=== PATIENT | female | born 1995 | race Two or more races ===

== ENCOUNTER 2017-03-12 13:36 | Emergency (ER) | payer MEDICAID ==
[2017-03-12] MEDS ORDERED: IPRATROPIUM/ALBUTEROL 0.5-2.5 MG/3 ML AMPUL NEB ONE (14:41)
--- NOTE | 2017-03-12 14:41 | ER Document Report ---
ED General - General Chief Complaint: Asthma Exacerbation Stated Complaint: DIFFICULTY BREATHING CHEST PAIN Time Seen by Provider: 03/12/17 14:36 Mode of Arrival: Ambulatory Information source: Patient Notes: 21-year-old female history of asthma presents with complaints of asthma exacerbation. Patient notes the tach started at 330 this [place] Patient denies any fevers or chills Patient does note sister has a history of clotting disorder TRAVEL OUTSIDE OF THE [place] IN LAST 30 DAYS: No - Related Data Allergies/Adverse Reactions: No Known Allergies Allergy (Unverified 03/12/17 13:46) Past Medical History - Social History Smoking Status: Current Every Day Smoker Chew tobacco use (# tins/day): No Frequency of alcohol use: Occasional Drug Abuse: None Family History: Other - Past Medical History Cardiac Medical History: Reports: Hx Hypertension Pulmonary Medical History: Reports: Hx Asthma Renal/ Medical History: Denies: Hx Peritoneal Dialysis Psychiatric Medical History: Reports: Hx Bipolar Disorder Past Surgical History: Reports: Hx Section - Immunizations Hx Diphtheria, Pertussis, Tetanus Vaccination: Yes Physical Exam - Vital signs Vitals: Temp Pulse Resp BP Pulse Ox 97.9 F 101 H 26 H 111/74 97 03/12/17 13:48 03/12/17 13:48 03/12/17 13:48 03/12/17 13:48 03/12/17 13:48 Course - Re-evaluation Re-evalutation: 03/12/17 17:07 D-dimer was negative patient notes relief after breathing treatment, patient is stable for discharge Given the patient states this feels exactly like her previous asthma exacerbation I will treat her as such After performing a Medical Screening Examination, I estimate there is LOW risk for ACUTE CORONARY SYNDROME, RESPIRATORY FAILURE, SEPSIS OR MENINGITIS, thus I consider the discharge disposition reasonable. I have reevaluated this patient multiple times and no significant life threatening changes are noted. The patient and I have discussed the diagnosis and risks, and we agree with discharging home with close follow-up. We also discussed returning to the Emergency Department immediately if new or worsening symptoms occur. We have discussed the symptoms which are most concerning (e.g., changing or worsening pain, trouble swallowing or breathing, neck stiffness, fever) that necessitate immediate return. 03/12/17 17:08 - Vital Signs Vital signs: Temp Pulse Resp BP Pulse Ox 97.9 F 101 H 26 H 111/74 97 03/12/17 13:48 03/12/17 13:48 03/12/17 13:48 03/12/17 13:48 03/12/17 13:48 Discharge - Discharge Clinical Impression: Asthma attack Qualifiers: Asthma severity: mild Asthma persistence: intermittent Qualified Code(s): J45.21 - Mild intermittent asthma with (acute) exacerbation Condition: Stable Disposition: HOME, SELF-CARE Instructions: Asthma ([facility]) Additional Instructions: Follow up with your physician tomorrow for further care or return to the ED IMMEDIATELY if symptoms worsen or new concerns occur. If you cannot afford to follow up with your primary care physician a list of low cost clinics have been provided at the end of your discharge papers as well. Prescriptions: Prednisone [Deltasone 20 mg Tablet] 3 tab PO DAILY 5 Days tablet
[2017-03-12] MEDS ORDERED: ALBUTEROL SULFATE HFA (90 MCG/PUFF) 8 GM MDI (1 MDI/ER DISP) IH PRN (17:10)
[2017-03-12 17:16] VITALS: BP 113/83
== END 2017-03-12 17:17 | disposition home or self-care (01) ==
LOC: ER 13:36
DX: J45.21 Mild intermittent asthma with (acute) exacerbation (principal); R06.02 Shortness of breath; R07.9 Chest pain, unspecified; F17.200 Nicotine dependence, unspecified, uncomplicated
CPT/HCPCS: 94640; 99285; 36415; 85379; J3490; J7620

== ENCOUNTER 2017-07-29 20:22 | Emergency (ER) ==
[2017-07-29 20:27] VITALS: BP 102/58
== END 2017-07-29 21:25 | disposition left against medical advice (07) ==
LOC: ER 20:22
DX: Z53.21 Procedure and treatment not carried out due to patient leaving prior to being seen by health care provider (principal); R10.9 Unspecified abdominal pain

== ENCOUNTER 2017-08-16 17:37 | Emergency (ER) | payer MEDICAID ==
[2017-08-16] MEDS ORDERED: METOCLOPRAMIDE HCL INJ/PF 10 MG/2 ML SDV IV ONE (18:01)
[2017-08-16] MEDS ORDERED: NORMAL SALINE 1000 ML 1,000 ML IV ONE (18:01)
--- NOTE | 2017-08-16 18:04 | ER Document Report ---
ED GI/ - General Chief Complaint: Abdominal Pain Stated Complaint: STOMACH PAIN Time Seen by Provider: 08/16/17 17:51 Mode of Arrival: Ambulatory Information source: Patient TRAVEL OUTSIDE OF THE [place] IN LAST 30 DAYS: No - HPI Patient complains to provider of: Abdominal pain Onset: Last week Notes: 08/16/17 18:02 Patient is here with complaints of left lower abdominal pain. The pain has been present for the last few days. It is sharp in nature. She does have a prior history of ovarian cyst. She states that her last normal menstrual period was the 26th of last month. She has had prior but denies any other prior abdominal surgeries. She has nausea but denies any vomiting currently. She states that she had some vomiting 3 days ago but that has resolved. No diarrhea. No dysuria or hematuria. No vaginal bleeding. She states that she has some mild vaginal discharge, but she thinks she is currently ovulating that this is normal for her during this timeframe. She denies dysuria or hematuria. No chest pain or shortness of breath. She is concerned that she may be , she states that she took a test at home and there was a faint positive line. She denies any other complaints at this time. - Related Data Allergies/Adverse Reactions: No Known Allergies Allergy (Verified 08/16/17 17:39) Past Medical History - Social History Smoking Status: Current Every Day Smoker Chew tobacco use (# tins/day): No Frequency of alcohol use: None Drug Abuse: None Family History: Other Patient has suicidal ideation: No Patient has homicidal ideation: No - Past Medical History Cardiac Medical History: Reports: Hx Hypertension Pulmonary Medical History: Reports: Hx Asthma Renal/ Medical History: Denies: Hx Peritoneal Dialysis Psychiatric Medical History: Reports: Hx Bipolar Disorder Past Surgical History: Reports: Hx Section - Immunizations Hx Diphtheria, Pertussis, Tetanus Vaccination: Yes Review of Systems - Review of Systems -: Yes All other systems reviewed and negative Physical Exam - Vital signs Vitals: Temp Pulse Resp BP Pulse Ox 98.4 F 120 H 18 121/72 99 08/16/17 17:42 08/16/17 17:42 08/16/17 17:42 08/16/17 17:42 08/16/17 17:42 - Notes Notes: GENERAL: alert, cooperative, nontoxic, no distress. HEAD: normocephalic, atraumatic EYES: conjunctiva pink without discharge, no external redness or swelling. EARS: no external swelling, no external redness NOSE: atraumatic, no external swelling MOUTH/THROAT: mucous membranes moist and pink, posterior pharynx without erythema, swelling, exudate. No trismus or drooling. NECK: soft, supple, full range of motion, no meningismus. CHEST: no distress, lungs clear and equal throughout. No wheezing, rales, rhonchi. CARDIAC: regular rate and rhythm, no murmur, normal capillary refill, normal pulses. No peripheral edema noted. ABDOMEN: Soft, left pelvic tenderness on exam. No rebound tenderness or guarding. BACK: full range of motion, no CVA tenderness. EXTREMITIES: full range of motion of all extremities. No redness, no swelling. NEURO: alert and oriented x 3, no focal deficits, full range of motion of all extremities. PYSCH: appropriate mood, affect. Patient is cooperative. SKIN: pink, warm, dry, no rash. : Performed with female furnace keeper at the bedside. No external lesions. Cervix is closed. No cervical lesions. Small amount of thin white vaginal discharge. No cervical motion tenderness. Moderate left adnexal tenderness on bimanual exam with no obvious mass. Course - Re-evaluation Re-evalutation: 08/16/17 20:45 The patient is nontoxic appearing with stable vitals. She is here with complaints of left pelvic pain. On exam she is noted to have some left-sided pelvic pain. No cervical motion tenderness or discharge. No sign of PID. Her gonorrhea and chlamydia cultures are negative. Wet prep is negative. Urine is negative for UTI and urine as well as serum are all negative. Remainder of her labs are unremarkable aside from some minimal elevation in her AST and ALT. This is very nonspecific. The patient has no right upper quadrant tenderness on exam. Pelvic ultrasound shows no acute abnormalities with no sign of torsion, tubo-ovarian abscess, other significant abnormalities per the radiologist. This point I cannot exactly explain the patient's pelvic pain, but I am not finding any significant reason for her pain. The patient can be discharged home with a prescription for Naprosyn. Instructions to follow-up with her primary care doctor at the next available appointment. Follow-up sooner for any worsening symptoms, high fever, persistent vomiting, or for any further concerns. Her tachycardia has resolved with IV fluids. She is ready for discharge. The patient is noted to have elevated blood pressure during today's emergency department visit. The patient was informed of this finding. The patient was instructed that this may be related to pre-hypertension and requires further evaluation with a primary care provider. The patient has no hypertensive symptoms at this time. The patient's emergency department workup and current diagnosis were explained to the patient and or family. Follow-up instructions were provided. Medications if prescribed were discussed. Instructions for when to return to the emergency department including specific worrisome symptoms were discussed with the patient and/or family. - Vital Signs Vital signs: Temp Pulse Resp BP Pulse Ox 98.3 F 92 16 107/77 98 08/16/17 20:19 08/16/17 20:19 08/16/17 20:19 08/16/17 20:19 08/16/17 20:19 - Laboratory Result Diagrams: 08/16/17 18:40 08/16/17 18:40 Laboratory results interpreted by me: 08/16/17 08/16/17 18:40 18:40 Sodium 145.3 H Chloride 108 H Calcium 10.4 H AST 39 H ALT 69 H Total Protein 8.4 H Urine Urobilinogen 2.0 H Ur Leukocyte Esterase TRACE H - Diagnostic Test Radiology reviewed: Image reviewed, Reports reviewed - Pelvic ultrasound with no acute abnormality per the radiologist. Discharge - Discharge Clinical Impression: Pelvic pain Condition: Stable Disposition: HOME, SELF-CARE Instructions: Abdominal Pain ([facility]), Pelvic Pain ([facility]) Additional Instructions: Take medications as prescribed. You may also take [id number] Tylenol as needed. Follow-up with your doctor at the next available appointment. Follow- up sooner for increasing pain, high fever, persistent vomiting, or for any further concerns. Your blood pressure was elevated during today's visit. Have this rechecked with your doctor. Prescriptions: Naproxen [Naprosyn] 500 mg PO BID #20 tablet Forms: Elevated Blood Pressure, Smoking Cessation Education Referrals: [facility] [Provider Group] - Follow up as needed
[2017-08-16 18:44] LABS: T.VAGINALIS (WET MOUNT) NO TRICHOMONAS SEEN; YEAST (WET MOUNT) NO YEAST SEEN
[2017-08-16 18:45] LABS: WBCS (WET MOUNT) RARE WBCS SEEN
[2017-08-16 19:04] LABS: ABSOLUTE LYMPHOCYTES (AUTO) 2.9 10^3/uL (0.5-4.7); ABSOLUTE MONOCYTES (AUTO) 0.7 10^3/uL (0.1-1.4); ABSOLUTE NEUT (AUTO) 5.4 10^3/uL (1.7-8.2); BASOPHILS % (AUTO) 0.3 % (0-2); EOSINOPHILS % (AUTO) 0.3 % (0-6); HEMATOCRIT 41.2 % (36.0-47.0); HEMOGLOBIN 13.9 g/dL (12.0-15.5); LYMPHOCYTES % (AUTO) 31.6 % (13-45); MEAN CORPUSCULAR HEMOGLOBIN 32.4 pg (27.0-33.4); MEAN CORPUSCULAR HGB CONC 33.6 g/dL (32.0-36.0); MEAN CORPUSCULAR VOLUME 96 fl (80-97); MONOCYTES % (AUTO) 7.7 % (3-13); PLATELET COUNT 255 10^3/uL (150-450); RED BLOOD COUNT 4.28 10^6/uL (3.72-5.28); SEGMENTED NEUTROPHILS % (AUTO) 60.1 % (42-78); TOTAL CELLS COUNTED % (AUTO) 100 %; WHITE BLOOD COUNT 9.1 10^3/uL (4.0-10.5)
[2017-08-16 19:14] LABS: AMORPHOUS SEDIMENT,URINE TRACE /HPF; APPEARANCE,URINE CLOUDY; BILIRUBIN,URINE NEGATIVE (NEGATIVE); COLOR,URINE YELLOW; GLUCOSE, URINE NEGATIVE (NEGATIVE); KETONES,URINE NEGATIVE (NEGATIVE); LEUKOCYTE ESTERASE,URINE TRACE (NEGATIVE); NITRITE,URINE NEGATIVE (NEGATIVE); PROTEIN,URINE NEGATIVE (NEGATIVE)
[2017-08-16 19:23] LABS: ALANINE AMINOTRANSFERASE 69 U/L (9-52); ALBUMIN 4.8 g/dL (3.5-5.0); ALKALINE PHOSPHATASE 87 U/L (38-126); ANION GAP 14 (5-19); ASPARTATE AMINO TRANSFERASE 39 U/L (14-36); BILIRUBIN,DIRECT 0.4 mg/dL (0.0-0.4); BILIRUBIN,TOTAL 0.4 mg/dL (0.2-1.3); BLOOD UREA NITROGEN 8 mg/dL (7-20); CALCIUM 10.4 mg/dL (8.4-10.2); CARBON DIOXIDE 23 mmol/L (22-30); CHLORIDE 108 mmol/L (98-107); GLUCOSE 99 mg/dL (75-110); LIPASE 69.7 U/L (23-300); POTASSIUM 4.2 mmol/L (3.6-5.0); SODIUM 145.3 mmol/L (137-145); TOTAL PROTEIN 8.4 g/dL (6.3-8.2)
[2017-08-16 20:09] LABS: CHLAM PCR NOT DETECTED (NOT DETECT); GON PCR NOT DETECTED (NOT DETECT)
--- NOTE | 2017-08-16 20:18 | RADIOLOGY REPORT (SQ) ---
EXAM DESCRIPTION: U/S NON OB PEL TV W/DOPPLER COMPLETED DATE/TIME: 08/16/2017 8:01 pm REASON FOR STUDY: LEFT PELVIC PAIN LMP 08/01/2017 COMPARISON: None. TECHNIQUE: Dynamic and static grayscale images acquired of the pelvis via transvaginal approach and recorded on PACS. Additional selected color Doppler and spectral images recorded. LIMITATIONS: None. FINDINGS: UTERUS: Contour normal. No mass. ENDOMETRIAL STRIPE: No focal or generalized thickening. No masses. CERVIX: 3.3 cm. No nabothian cysts. RIGHT OVARY: Ovary not seen. RIGHT OVARY DOPPLER: Normal arterial vascular flow without evidence for torsion. LEFT OVARY: No abnormal masses. LEFT OVARY DOPPLER: Normal arterial vascular flow without evidence for torsion. Normal follicular cy sts are present. FREE FLUID: None noted. OTHER: No other significant finding. MEASUREMENTS: UTERUS: 9.5 x 4.2 x 4.7 cm. ENDOMETRIAL STRIPE: 5.2 mm. RIGHT OVARY: Ovary not seen. LEFT OVARY: 2.9 x 2 x 2.1 cm. IMPRESSION: The study is essentially normal. The right ovary could not be seen. There is no left o varian torsion. TECHNICAL DOCUMENTATION: JOB ID: [id number] [employer]+- All Rights Reserved Reading location - IP/workstation name: [email or web address]
[2017-08-16 21:04] VITALS: BP 120/77
== END 2017-08-16 21:06 | disposition home or self-care (01) ==
LOC: ER 17:37
DX: R10.2 Pelvic and perineal pain (principal); R10.30 Lower abdominal pain, unspecified; R00.0 Tachycardia, unspecified; I10 Essential (primary) hypertension
CPT/HCPCS: 99284; 96361; 96374; 36415; 87210; 84702; 83690; 85025; 81025; 80053; 81001; 87491; 87591; 76830; 93976; J2765; J7030

== ENCOUNTER 2017-08-30 07:16 | Emergency (ER) | payer MEDICAID ==
--- NOTE | 2017-08-30 08:00 | ER Document Report ---
ED GI/ - General Chief Complaint: Abdominal Pain Stated Complaint: ABDOMINAL PAIN Time Seen by Provider: 08/30/17 07:48 Notes: HPI-21 years old female who is for the last 5 weeks, presents today with vaginal bleeding and abdominal cramping. No fever chills or other constitutional symptoms. REVIEW OF SYSTEMS: CONSTITUTIONAL : Denies fever, chills, or sweats. Denies recent illness. EENT: Denies eye, ear, throat, or mouth pain or symptoms. Denies nasal or sinus congestion or discharge. Denies throat, tongue, or mouth swelling or difficulty swallowing. CARDIOVASCULAR: Denies chest pain. Denies palpitations or racing or irregular heart beat. Denies ankle edema. RESPIRATORY: Denies cough, cold, or chest congestion. Denies shortness of breath, difficulty breathing, or wheezing. GASTROINTESTINAL: Denies abdominal pain or distention. Denies nausea, vomiting , or diarrhea. Denies blood in vomitus, stools, or per rectum. Denies black, tarry stools. Denies constipation. GENITOURINARY: Denies difficulty urinating, painful urination, burning, frequency, blood in urine, or discharge. FEMALE GENITOURINARY: Denies vaginal bleeding, heavy or abnormal periods, irregular periods. Denies vaginal discharge or odor. MUSCULOSKELETAL: Denies back or neck pain or stiffness. Denies joint pain or swelling. SKIN: Denies rash, lesions or sores. HEMATOLOGIC : Denies easy bruising or bleeding. LYMPHATIC: Denies swollen, enlarged glands. NEUROLOGICAL: Denies confusion or altered mental status. Denies passing out or loss of consciousness. Denies dizziness or lightheadedness. Denies headache. Denies weakness or paralysis or loss of use of either side. Denies problems with gait or speech. Denies sensory loss, numbness, or tingling. Denies seizures. PSYCHIATRIC: Denies anxiety or stress. Denies depression, suicidal ideation, or homicidal ideation. ALL OTHER SYSTEMS REVIEWED AND NEGATIVE. PHYSICAL EXAMINATION: GENERAL: Well-appearing, well-nourished and in no acute distress. HEAD: Atraumatic, normocephalic. EYES: Pupils equal round and reactive to light, extraocular movements intact, conjunctiva are normal. ENT: Nares patent, oropharynx clear without exudates. Moist mucous membranes. NECK: Normal range of motion, supple without lymphadenopathy LUNGS: Breath sounds clear to auscultation bilaterally and equal. No wheezes rales or rhonchi. HEART: Regular rate and rhythm without murmurs ABDOMEN: Soft, nontender, nondistended abdomen. No guarding, no rebound. No masses appreciated. Female : deferred Musculoskeletal: Normal range of motion, no pitting or edema. No cyanosis. NEUROLOGICAL: Cranial nerves grossly intact. Normal speech, normal gait. Normal sensory, motor exams PSYCH: Normal mood, normal affect. SKIN: Warm, Dry, normal turgor, no rashes or lesions noted. Dictation was performed using [employer] recognition software TRAVEL OUTSIDE OF THE [place] IN LAST 30 DAYS: No - Related Data Allergies/Adverse Reactions: No Known Allergies Allergy (Verified 08/30/17 07:19) Past Medical History - Social History Smoking Status: Never Smoker Frequency of alcohol use: Rare Drug Abuse: None Family History: Reviewed & Not Pertinent, Other - Past Medical History Cardiac Medical History: Reports: Hx Hypertension Pulmonary Medical History: Reports: Hx Asthma Renal/ Medical History: Denies: Hx Peritoneal Dialysis Psychiatric Medical History: Reports: Hx Bipolar Disorder Past Surgical History: Reports: Hx Section - Immunizations Hx Diphtheria, Pertussis, Tetanus Vaccination: Yes Physical Exam - Vital signs Vitals: Temp Pulse Resp BP Pulse Ox 98.7 F 85 16 109/68 98 08/30/17 07:26 08/30/17 07:26 08/30/17 07:26 08/30/17 07:26 08/30/17 07:26 Course - Vital Signs Vital signs: Temp Pulse Resp BP Pulse Ox 98.7 F 85 16 109/68 98 08/30/17 07:26 08/30/17 07:26 08/30/17 07:26 08/30/17 07:26 08/30/17 07:26 - Laboratory Laboratory results interpreted by me: 08/30/17 07:55 Ur Leukocyte Esterase SMALL H Discharge - Discharge Clinical Impression: Menstrual cycle disorder Condition: Fair Instructions: Dysmenorrhea ([facility])
[2017-08-30 08:27] LABS: APPEARANCE,URINE SLIGHTLY-CLOUDY; BILIRUBIN,URINE NEGATIVE (NEGATIVE); COLOR,URINE STRAW; GLUCOSE, URINE NEGATIVE (NEGATIVE); KETONES,URINE NEGATIVE (NEGATIVE); LEUKOCYTE ESTERASE,URINE SMALL (NEGATIVE); NITRITE,URINE NEGATIVE (NEGATIVE); PROTEIN,URINE NEGATIVE (NEGATIVE); URINE SPECIFIC GRAVITY 1.004; UROBILINOGEN,URINE NEGATIVE mg/dL (<2.0)
[2017-08-30 12:22] VITALS: BP 113/72
== END 2017-08-30 12:25 | disposition home or self-care (01) ==
LOC: ER 07:16
DX: N92.6 Irregular menstruation, unspecified (principal); R10.9 Unspecified abdominal pain; I10 Essential (primary) hypertension; J45.909 Unspecified asthma, uncomplicated
CPT/HCPCS: 36415; 81001; 81025; 84702; 99284

== ENCOUNTER 2018-02-28 18:51 | Emergency (ER) | payer OTHER ==
--- NOTE | 2018-02-28 20:30 | ER Document Report ---
ED Medical Screen (RME) - General Chief Complaint: Vaginal Bleeding Stated Complaint: VAGINAL BLEEDING/CRAMPING Time Seen by Provider: 02/28/18 20:28 Notes: 22-year-old female patient with possible IUP from ER visit in [place]. Workup performed which showed a quantitative hCG of 4600. Ultrasound showed possible IUP with yolk sac and possible stational sac. Began having cramping and spotting around 6 PM tonight. No serious pain. Denies any other symptoms at this time. Renogram workup was performed at outside hospital and results were reviewed by this physician which shows she is O+ blood type. I have greeted and performed a rapid initial assessment of this patient. A comprehensive ED assessment and evaluation of the patient, analysis of test results and completion of the medical decision making process will be conducted by additional ED providers. TRAVEL OUTSIDE OF THE [place] IN LAST 30 DAYS: No - Related Data Allergies/Adverse Reactions: coconut oil Allergy (Verified 02/28/18 18:52) grapefruit Allergy (Verified 02/28/18 18:52) pineapple Allergy (Verified 02/28/18 18:52) Past Medical History - Past Medical History Cardiac Medical History: Reports: Hx Hypertension Pulmonary Medical History: Reports: Hx Asthma Renal/ Medical History: Denies: Hx Peritoneal Dialysis Psychiatric Medical History: Reports: Hx Bipolar Disorder Past Surgical History: Reports: Hx Section - Immunizations Hx Diphtheria, Pertussis, Tetanus Vaccination: Yes Physical Exam - Vital signs Vitals: Temp Pulse Resp BP Pulse Ox 98.1 F 95 18 122/71 99 02/28/18 18:54 02/28/18 18:54 02/28/18 18:54 02/28/18 18:54 02/28/18 18:54 Course - Vital Signs Vital signs: Temp Pulse Resp BP Pulse Ox 98.1 F 95 18 122/71 99 02/28/18 18:54 02/28/18 18:54 02/28/18 18:54 02/28/18 18:54 02/28/18 18:54
--- NOTE | 2018-02-28 23:16 | ER Document Report ---
ED General - General Chief Complaint: Vaginal Bleeding Stated Complaint: VAGINAL BLEEDING/CRAMPING Time Seen by Provider: 02/28/18 20:28 Mode of Arrival: Ambulatory TRAVEL OUTSIDE OF THE [place] IN LAST 30 DAYS: No - HPI Patient complains to provider of: Vaginal bleeding Onset: Other - This is a 22-year-old 6 week female that presents for evaluation of painless vaginal bleeding which started today. She notes that she had a similar episode 1 week prior at which time she underwent an ultrasound and then had been following up. She is visiting from out of town currently. - Related Data Allergies/Adverse Reactions: coconut oil Allergy (Verified 02/28/18 18:52) grapefruit Allergy (Verified 02/28/18 18:52) pineapple Allergy (Verified 02/28/18 18:52) Past Medical History - General Information source: Patient - Social History Smoking Status: Former Smoker Cigarette use (# per day): No Family History: Reviewed & Not Pertinent, Other Patient has suicidal ideation: No Patient has homicidal ideation: No - Past Medical History Cardiac Medical History: Reports: Hx Hypertension Pulmonary Medical History: Reports: Hx Asthma Renal/ Medical History: Denies: Hx Peritoneal Dialysis Psychiatric Medical History: Reports: Hx Bipolar Disorder Past Surgical History: Reports: Hx Section - Immunizations Hx Diphtheria, Pertussis, Tetanus Vaccination: Yes Review of Systems - Review of Systems -: Yes All other systems reviewed and negative Physical Exam - Vital signs Vitals: Temp Pulse Resp BP Pulse Ox 98.1 F 95 18 122/71 99 02/28/18 18:54 02/28/18 18:54 02/28/18 18:54 02/28/18 18:54 02/28/18 18:54 - General General appearance: Appears well In distress: None - HEENT Head: Normocephalic Eyes: Normal Conjunctiva: Normal Cornea: Normal Extraocular movements intact: Yes Eyelashes: Normal Pupils: PERRL - Respiratory Respiratory status: No respiratory distress Chest status: Nontender Breath sounds: Normal Chest palpation: Normal - Cardiovascular Rhythm: Regular Heart sounds: Normal auscultation Murmur: No - Abdominal Inspection: Normal, Striae Tenderness: Nontender - Back Back: Normal - Extremities General upper extremity: Normal inspection, Nontender, Normal ROM, Normal strength General lower extremity: Normal inspection, Nontender, Normal ROM, Normal strength - Neurological Neuro grossly intact: Yes Cognition: Normal Orientation: AAOx4 Nikia Coma Scale Eye Opening: Spontaneous Nikia Coma Scale Verbal: Oriented Burke Coma Scale Motor: Obeys Commands Burke Coma Scale Total: 15 Course - Re-evaluation Re-evalutation: 03/01/18 04:21 This 22-year-old female presented for evaluation of and spotting. Through triage she had labs obtain an ultrasound obtained. Her ultrasound did demonstrate a subchorionic hemorrhage. She otherwise has a unremarkable exam. Contacted on-call OB physician Dr. Gabriela Triana who notes that generally these are incidental findings and of little consequence this early in a . As patient is able tolerate p.o. is not actively bleeding appears overall well will plan for discharge with return precautions encouragement to avoid intercourse for the next day. - Vital Signs Vital signs: Temp Pulse Resp BP Pulse Ox 98.4 F 84 18 96/85 L 100 03/01/18 01:18 03/01/18 01:18 02/28/18 18:54 03/01/18 01:18 03/01/18 01:18 - Laboratory Laboratory results interpreted by me: 02/28/18 20:40 Beta HCG, Quant 49426.00 H Discharge - Discharge Clinical Impression: First trimester bleeding, Abnormal ultrasound Condition: Good Disposition: HOME, SELF-CARE Instructions: Vaginal Bleeding ([facility]) Additional Instructions: Your seen today in the emergency department for your bleeding while being . You had an evaluation including a physical exam as well as an ultrasound and blood tests. It appears that your is developing appropriately. You can return home tomorrow if you would like to, it appears that the small subchorionic hemorrhage identified under ultrasound is 1 cm. You should avoid pelvic insertion, sexual activity, which he can continue to do standard daily activity. Call your OB doctor for an appointment in the next 2 or 3 days.
--- NOTE | 2018-02-28 23:55 | RADIOLOGY REPORT (SQ) ---
EXAM DESCRIPTION: US TRANSVAGINAL COMPLETED DATE/TME: 02/28/2018 20:29 CLINICAL HISTORY: 22 years Female, + preg and pain with bleeding Comparison: 3.13.18 TECHNIQUE: Transvaginal. LIMITATIONS: None. FINDINGS: Living intrauterine fetus measures 6w0d with NESS of 10/24/2018. Complex, multiloculated 1.0 cm subchorionic hemorrhage. Cardiac activity is 130-bpm. Zeigler-rump length is 0.33-cm. Obscured right ovary, 3.9-cm left ovary, 3.4-cm cervical length, and no free fluid. IMPRESSION: Living 1st trimester intrauterine gestation. 1.0 cm perigestational hemorrhage.
[2018-03-01 01:51] VITALS: BP 96/85
== END 2018-03-01 01:51 | disposition home or self-care (01) ==
LOC: ER 18:51
DX: O20.8 Other hemorrhage in early pregnancy (principal); O16.1 Unspecified maternal hypertension, first trimester; O99.511 Diseases of the respiratory system complicating pregnancy, first trimester; J45.909 Unspecified asthma, uncomplicated; Z3A.01 Less than 8 weeks gestation of pregnancy; Z91.018 Allergy to other foods; Z87.891 Personal history of nicotine dependence
CPT/HCPCS: 36415; 76817; 84702; 99284